=== PATIENT | female | born 1985 | race Caucasian/White ===

== ENCOUNTER 2016-04-24 06:22 | Emergency (ER) | payer MEDICAID ==
[~2016-04-24] VITALS: Wt 74.0 kg
[~2016-04-24 06:22] MED LIST: FERR27TA; PREN-39 PO
[2016-04-24] MEDS ORDERED: IBUPROFEN 600 MG TAB PO ONE (07:00)
[2016-04-24] MEDS ORDERED: NAPR-260 PO (07:01)
--- NOTE | 2016-04-24 07:21 | ERD ---
ER Documentation Chief Complaint Date/Time DATE: 04/24/16 TIME: 07:17 Chief Complaint right hand pain intermittent burning and redness with no exposure to chem HPI 31 year old female otherwise healthy comes in with 2 week history of right hand pain with numbness. It is in the right wrist and goes into the first 3 digits of her right hand, she states it is worse at night usually however has become more persistent. No fever, or trauma to this arm. She denies neck pain. She is right hand dominant and state it is worse after she cleans. ROS All systems reviewed and are negative except as per history of present illness. Medications Home Meds Active Scripts Naproxen* (Naprosyn*) 500 Mg Tablet, 500 MG PO BID Y for PAIN AND/OR INFLAMMATION, #30 TAB Prov:MALLORY PAUL PA-C 04/24/16 Reported Medications Vits W-Ca,Fe,Fa(<1MG) ( Vitamins) 1 Tab Tablet, 1 TAB PO DAILY 07/20/14 Ferrous Sulfate (Iron) 1 Tab Tablet 09/24/09 Allergies Allergies: Coded Allergies: No Known Allergy (Verified , 01/01/10) PMhx/Soc History of Surgery: No Anesthesia Reaction: No Hx Neurological Disorder: No Hx Respiratory Disorders: No Hx Cardiac Disorders: No Hx Psychiatric Problems: No Hx Miscellaneous Medical Probl: No Hx Alcohol Use: No Hx Substance Use: No Hx Tobacco Use: No Smoking Status: Never smoker Physical Exam Vitals Vital Signs Date Time Temp Pulse Resp B/P Pulse Ox O2 Delivery O2 Flow Rate FiO2 04/24/16 06:30 98.5 71 21 107/71 98 Physical Exam General: Well-developed, well-nourished. The patient appears in no acute distress. HEENT: Head is normocephalic, atraumatic. No scleral icterus. Neck: Supple. Nontender. Lungs: Clear to auscultation. Normal air movement. Heart: Regular rate and rhythm. S1 and S2 are normal. No murmurs, gallops, or rubs. Abdomen: Nondistended. Extremities: Right upper extremity is atraumatic, radial pulses 2+ bilaterally, radiating, ulnar, median nerves intact bilaterally. No rash, no bony deformities. Neurologic: Alert and oriented 3. No focal deficits. Normal speech and gait. Skin: Normal turgor. No rash or lesions. Results 24 hrs Current Medications Medications (Trade) Dose Ordered Sig/El Route PRN Reason Start Time Stop Time Status Last Admin Dose Admin Ibuprofen (Motrin) 600 mg ONCE ONCE PO 04/24/16 07:00 04/24/16 07:01 DC 04/24/16 07:12 Procedures/MDM ED course: She was given ibuprofen for pain, and right wrist was placed in a Velcro wrist splint. MDM: 31-year-old female comes in with right hand pain and numbness on and off for the past 2 to show signs of any intracranial process, this appears to be a peripheral neuropathy consistent with likely carpal tunnel syndrome. She has normal function, no neuropraxia, no evidence of cellulitis or tenosynovitis or any infectious process. Departure Diagnosis: Primary Impression: Carpal tunnel syndrome Condition: Good Patient Instructions: What Is Carpal Tunnel Syndrome (CTS)? Additional Instructions: Llame al doctor MAANA y figueroa cyndee EMILY PARA DENTRO DE 1-2 KURTZ.Dgale a la secretaria que nosotros le instruimos hacer esta emily.Avise o llame si dobson condicin se empeora antes de la emily. Regresa aqui si peor o no mejor. MALLORY PAUL PA-C Apr 24, 2016 07:20
== END 2016-04-24 07:20 | disposition home or self-care (01) ==
LOC: FTE 06:22
DX: G56.01 Carpal tunnel syndrome, right upper limb (principal)
CPT/HCPCS: 29125; Z7502; Z7610

== ENCOUNTER 2016-12-18 00:12 | Emergency (ER) | payer MEDICAID ==
[~2016-12-18] VITALS: Ht 160 cm; Wt 74.0 kg
[~2016-12-18 00:12] MED LIST changes: +NAPR-260 PO
[2016-12-18 00:14] VITALS: Ht 160 cm; Wt 74.0 kg
[2016-12-18 00:55] VITALS: TEMP 96.8
[2016-12-18] MEDS ORDERED: morphine 4 MG/ML VIAL IV STA (01:05)
[2016-12-18] MEDS ORDERED: ONDANSETRON 4 MG INJ IV STA (01:05)
--- NOTE | 2016-12-18 01:09 | ERD ---
ER Documentation Chief Complaint Date/Time DATE: 12/18/16 TIME: 01:07 Chief Complaint on/off epigastric pain radiating to her flanks x a month now HPI Patient is a 31-year-old female who presents with sudden onset, intermittent, moderate, dull epigastric pain radiating to the right flank for the last month. She states that it is now been constant for the last 3 days and she vomits every time she eats. Pain is worse with eating. She denies hematemesis. She denies diarrhea or constipation. She reports having a cold, denies cough. She reports having mild subjective fever. ROS All systems reviewed and are negative except as per history of present illness. Medications Home Meds Active Scripts Ondansetron Hcl* (Zofran*) 4 Mg Tablet, 4 MG PO Q8H Y for NAUSEA AND/OR VOMITING , #15 TAB Prov:EVANGELINA AUGUST MD 12/18/16 Famotidine* (Pepcid*) 20 Mg Tablet, 20 MG PO BID for 14 Days, TAB Prov:EVANGELINA AUGUST MD 12/18/16 Naproxen* (Naprosyn*) 500 Mg Tablet, 500 MG PO BID Y for PAIN AND/OR INFLAMMATION, #30 TAB Prov:MALLORY PAUL PA-C 04/24/16 Reported Medications Vits W-Ca,Fe,Fa(<1MG) ( Vitamins) 1 Tab Tablet, 1 TAB PO DAILY 07/20/14 Ferrous Sulfate (Iron) 1 Tab Tablet 09/24/09 Allergies Allergies: Coded Allergies: No Known Allergy (Verified , 01/01/10) PMhx/Soc Past medical history: None Past surgical history: None Social history: Denies tobacco or alcohol Last menstrual: December 04 History of Surgery: No Anesthesia Reaction: No Hx Neurological Disorder: No Hx Respiratory Disorders: No Hx Cardiac Disorders: No Hx Psychiatric Problems: No Hx Miscellaneous Medical Probl: No Hx Alcohol Use: No Hx Substance Use: No Hx Tobacco Use: No FmHx Family History: No coronary disease, No diabetes Physical Exam Vitals Vital Signs Date Time Temp Pulse Resp B/P Pulse Ox O2 Delivery O2 Flow Rate FiO2 12/18/16 02:31 62 20 107/72 100 Room Air 12/18/16 00:55 96.8 67 16 121/84 100 Room Air 12/18/16 00:14 96.8 72 18 123/79 100 Physical Exam Const: Alert, slightly teary-eyed Head: Atraumatic Eyes: Normal Conjunctiva, No pallor, no icterus ENT: Normal External Ears, Nose and Mouth.Mucous membranes moist Neck: Full range of motion..~ No meningismus. Resp: Clear to auscultation bilaterally, No wheezes, no rales Cardio: Regular rate and rhythm, no murmurs Abd: Soft, Nondistended, mild tenderness in epigastrium, no rebound or guarding, no CVA tenderness Skin: No petechiae or rashes Back: No midline or flank tenderness Ext: No cyanosis, or edema Neur: Awake and alert Psych: Normal Mood and Affect Result Diagram: 12/18/169912/18/1699 Results 24 hrs Laboratory Tests Test 12/18/16 01:00 White Blood Count 10.710^3/ul Red Blood Count 4.6610^6/ul Hemoglobin 12.9g/dl Hematocrit 39.0% Mean Corpuscular Volume 83.7fl Mean Corpuscular Hemoglobin 27.7pg Mean Corpuscular Hemoglobin Concent 33.1g/dl Red Cell Distribution Width 13.6% Platelet Count 99632^3/UL Mean Platelet Volume 10.5fl Neutrophils % 53.8% Lymphocytes % 35.6% Monocytes % 7.4% Eosinophils % 2.3% Basophils % 0.5% Nucleated Red Blood Cells % 0.0/100WBC Neutrophils # 5.710^3/ul Lymphocytes # 3.810^3/ul Monocytes # 0.810^3/ul Eosinophils # 0.210^3/ul Basophils # 0.110^3/ul Nucleated Red Blood Cells # 0.010^3/ul Urine Color STRAW Urine Clarity CLEAR Urine pH 6.0 Urine Specific [place] 1.003 Urine Ketones NEGATIVEmg/dL Urine Nitrite NEGATIVEmg/dL Urine Bilirubin NEGATIVEmg/dL Urine Urobilinogen NEGATIVEmg/dL Urine Leukocyte Esterase 2+Jairo/ul Urine Microscopic RBC 0/HPF Urine Microscopic WBC 3/HPF Urine Squamous Epithelial Cells FEW/HPF Urine Hemoglobin NEGATIVEmg/dL Urine Glucose NEGATIVEmg/dL Urine Total Protein NEGATIVEmg/dl Sodium Level 139mmol/L Potassium Level 3.6mmol/L Chloride Level 107mmol/L Carbon Dioxide Level 25mmol/L Anion Gap 11 Blood Urea Nitrogen 16mg/dl Creatinine 0.65mg/dl Glucose Level 96mg/dl Calcium Level 9.1mg/dl Total Bilirubin 0.3mg/dl Direct Bilirubin 0.00mg/dl Indirect Bilirubin 0.3mg/dl Aspartate Amino Transf (AST/SGOT) 16IU/L Alanine Aminotransferase (ALT/SGPT) 23IU/L Alkaline Phosphatase 128IU/L Total Protein 7.8g/dl Albumin 4.0g/dl Globulin 3.80g/dl Albumin/Globulin Ratio 1.05 Lipase 101U/L Serum HCG, Qualitative NEGATIVE Current Medications Medications (Trade) Dose Ordered Sig/El Route PRN Reason Start Time Stop Time Status Last Admin Dose Admin Morphine Sulfate (morphine) 3 mg ONCE STAT IV 12/18/16 01:05 12/18/16 01:08 DC 12/18/16 01:16 Ondansetron HCl (Zofran Inj) 4 mg ONCE STAT IV 12/18/16 01:05 12/18/16 01:08 DC 12/18/16 01:16 Famotidine (Pepcid Iv) 20 mg ONCE ONCE IV 12/18/16 01:30 12/18/16 01:31 DC 12/18/16 01:16 Procedures/MDM EKG read by me: Time 0137, rate 60 Rhythm: Normal sinus [place]: Normal Intervals: Normal ST-T waves: no ischemic changes Ectopy: No Q-waves: No Impression: No evidence of ischemia or arrhythmia MDM: Patient is a 31-year-old female who presents with 1 month of intermittent epigastric and right flank pain. She reports having 3 days of more severe pain with multiple episodes of vomiting. She has a relatively benign abdominal exam. CBC and BMP are unremarkable. Her UA shows 2+ leukocyte esterase but only 3 WBCs. A culture was sent. The patient is not febrile. She denies dysuria. Ultrasound of the right upper quadrant shows cholelithiasis without evidence of choledocholithiasis or cholecystitis. It also shows nonobstructing right kidney stones. I suspect that the patient's symptoms are primarily due to biliary colic. The patient does report worsening symptoms with eating. I will give her prescription for Pepcid and Zofran, and advised her to eat a low- fat diet. I advised her on return precautions and the need for PMD follow-up for surgical referral. Departure Diagnosis: Primary Impression: Cholelithiasis Cholelithiasis location: gallbladder Cholecystitis presence: without cholecystitis Biliary obstruction: without biliary obstruction Qualified Code : K80.20 - Calculus of gallbladder without cholecystitis without obstruction Additional Impression: Nephrolithiasis Condition: EVANGELINA Nguyen MD Dec 18, 2016 01:09
[2016-12-18 01:13] LABS: BASOPHIL # 0.1 10^3/ul (0.0-0.1); BASOPHILS % 0.5 % (0.0-2.0); EOSINOPHILS # 0.2 10^3/ul (0.0-0.5); EOSINOPHILS % 2.3 % (0.0-7.0); HEMOGLOBIN 12.9 g/dl (12.0-16.0); LYMPHOCYTES # 3.8 10^3/ul (0.8-2.9); LYMPHOCYTES % 35.6 % (15.0-51.0); MEAN CORPUSCULAR HEMOGLOBIN 27.7 pg (29.0-33.0); MEAN CORPUSCULAR HGB CONC 33.1 g/dl (32.0-37.0); MEAN CORPUSCULAR VOLUME 83.7 fl (82.0-101.0); MEAN PLATELET VOLUME 10.5 fl (7.4-10.4); MONOCYTE # 0.8 10^3/ul (0.3-0.9); MONOCYTES % 7.4 % (0.0-11.0); NEUTROPHIL # 5.7 10^3/ul (1.6-7.5); NEUTROPHILS % 53.8 % (39.0-77.0); PLATELET COUNT 302 10^3/UL (140-415); RED BLOOD COUNT 4.66 10^6/ul (4.20-5.40); RED CELL DISTRIBUTION WIDTH 13.6 % (11.5-14.5); WHITE BLOOD COUNT 10.7 10^3/ul (4.8-10.8)
[2016-12-18 01:27] LABS: ALBUMIN/GLOBULIN RATIO 1.05; BILIRUBIN,INDIRECT 0.3 mg/dl (0-1.1); BILIRUBIN,TOTAL 0.3 mg/dl (0.2-1.3); CALCIUM 9.1 mg/dl (8.4-10.2); CREATININE 0.65 mg/dl (0.44-1.00); POTASSIUM 3.6 mmol/L (3.5-5.1); TOTAL PROTEIN 7.8 g/dl (6.1-8.1)
[2016-12-18] MEDS ORDERED: FAMOTIDINE 20 MG INJ IV ONE (01:30)
[2016-12-18 01:32] LABS: ADD UMIC YES; UR ASCORBIC ACID NEGATIVE (NEGATIVE); UR BILIRUBIN (Dip) NEGATIVE (NEGATIVE); UR BLOOD (Dip) NEGATIVE (NEGATIVE); UR CLARITY CLEAR (CLEAR); UR COLOR STRAW (YELLOW); UR GLUCOSE (Dip) NEGATIVE (NEGATIVE); UR KETONES (Dip) NEGATIVE (NEGATIVE); UR LEUKOCYTE ESTERASE (Dip) 2+ Leu/ul (NEGATIVE); UR NITRITE (Dip) NEGATIVE (NEGATIVE); UR RBC 0 /HPF (0-5); UR SPECIFIC GRAVITY (Dip) 1.003 (1.003-1.030); UR SQUAMOUS EPITHELIAL CELL FEW /HPF (FEW); UR TOTAL PROTEIN (Dip) NEGATIVE (NEGATIVE); UR UROBILINOGEN (Dip) NEGATIVE (NEGATIVE)
--- NOTE | 2016-12-18 02:15 | RADRPT ---
PROCEDURE: XR Chest. CLINICAL INDICATION: Cough TECHNIQUE: AP Portable chest. COMPARISON: No pertinent prior examinations were submitted for comparison. FINDINGS: The cardiomediastinal silhouette is normal. The aorta is normal. No focal consolidation, pleural eff usion or pneumothorax is seen. The osseous structures are intact. IMPRESSION: No radiographic evidence of acute cardiopulmonary disease. Physician Josh Date Time Electronically viewed and signed by Vasu Benedict Physician on 12/18/2016 02:15 CS/
--- NOTE | 2016-12-18 02:16 | RADRPT ---
PROCEDURE: Right upper quadrant ultrasound. CLINICAL INDICATION: Abdominal pain. TECHNIQUE: Multiple real-time longitudinal and transverse images of the right upper quadrant of th e abdomen were acquired utilizing a curved array transducer. Images were reviewed on a high-resoluti on PACS workstation. COMPARISON: None. FINDINGS: The pancreas head and body are unremarkable. The pancreas tail is not well seen. The liver is normal in echogenicity. The liver measures 14.8 cm in length. No hepatic lesion or in trahepatic biliary ductal dilatation is seen. The portal vein is patent with hepatopetal flow. There are multiple mobile stones in the gallbladder lumen. The gallbladder wall is not thickened. There is no pericholecystic fluid. The sonographic Chopra's sign is negative. The common bile duct m easures 5 mm in diameter, not dilated. The right kidney measures 11.2 cm in length. Renal parenchymal echogenicity is normal. Two echogeni c foci in the right kidney measure up to 4 mm, probably nonobstructing urinary stones. No hydronephr osis or renal mass is identified. The visualized portions of the aorta and IVC are unremarkable. IMPRESSION: 1. Cholelithiasis without evidence of cholecystitis. 2. No biliary dilatation. 3. Two nonobstructing right renal stones measuring up to 4 mm. RPTAT: HTAR .Donnell Flores MD, Date Time Electronically viewed and signed by .Donnell Flores MD, on 12/18/2016 02:16 .R/
[2016-12-18 02:31] VITALS: BP 107/72; PULSE 62; RESP 20
[2016-12-18] MEDS ORDERED: FAMO-96 PO (02:34)
[2016-12-18] MEDS ORDERED: ONDA4TAB8 PO (02:34)
== END 2016-12-18 02:35 | disposition home or self-care (01) ==
LOC: E/R 00:12
DX: K80.20 Calculus of gallbladder without cholecystitis without obstruction (principal); R40.2252 Coma scale, best verbal response, oriented, at arrival to emergency department; N20.0 Calculus of kidney; R40.2142 Coma scale, eyes open, spontaneous, at arrival to emergency department; R40.2362 Coma scale, best motor response, obeys commands, at arrival to emergency department
CPT/HCPCS: 36415; 71010; 76705; 80053; 81001; 83690; 84703; 85025; 87086; 93005; 96374; 96375; J2270; J2405; Z7502; Z7610

== ENCOUNTER 2017-12-22 21:17 | Emergency (ER) | END 2017-12-23 02:14 | disposition home or self-care (01) ==